=== PATIENT | female | born 1960 | race Two or more races ===

== ENCOUNTER 2024-04-14 17:13 | Emergency (ER) | payer OTHER ==
[~2024-04-14] VITALS: Ht 167.6 cm; Wt 147.4 kg
[~2024-04-14 17:13] MED LIST: CANDESARTAN CIL16 MG PO; CYCLOBENZAPRINE10 MG PO; GRALISE600 MG PO; LEVO-T25 MCG PO; TRAMADOL HCL E100 M1 PO
[2024-04-14] MEDS ORDERED: ZYRTEC10 M3 PO (17:25)
[2024-04-14] MEDS ORDERED: MONTELUKAST SODI4 M1 (17:25)
[2024-04-14] MEDS ORDERED: PROAIR RESPICL90 MCG (17:26)
[2024-04-14] MEDS ORDERED: KETOROLAC TROMETHAMINE 60 MG VIAL IM ONE ×2 (17:42→17:45)
[2024-04-14 18:08] LABS: MEAN CELL VOLUME 85.8 fL (80.00-100.00); MEAN CORPUSCULAR HEMOGLOBIN 28.7 pg (27.00-32.0); MEAN CORPUSCULAR HGB CONC 33.4 g/dl (32.0-36.0); PLATELET COUNT 153 K/uL (150-450); RED BLOOD COUNT 4.19 M/uL (4.00-6.00); RED CELL DISTRIBUTION WIDTH 14.9 % (11.5-14.5)
== END 2024-04-14 20:40 | disposition home or self-care (01) ==
LOC: ER 17:15
PROVIDERS: General Practice
DX: L03.90 Cellulitis, unspecified (principal); I10 Essential (primary) hypertension
CPT/HCPCS: 36415; 73552; 96372; 99283; J1885